=== PATIENT | male | born 1970 | race Caucasian/White ===

== ENCOUNTER 2021-01-29 11:12 | Emergency (ER) | payer OTHER ==
[2021-01-29 11:42] VITALS: BP 102/70; PULSE 84; TEMP 97.5; BMI 28.8
[2021-01-29] MEDS ORDERED: KETOROLAC TROMETHAMINE 30 MG/1 ML VIAL IM ONE (12:02)
[2021-01-29] MEDS ORDERED: KETOROLAC TROMETHAMINE 30 MG/1 ML VIAL ONE (12:17)
== END 2021-01-29 12:50 | disposition home or self-care (01) ==
LOC: JER 11:12
PROC: 3E0233Z Introduction of Anti-inflammatory into Muscle, Percutaneous Approach (ICD-10-PCS; principal; 2021-01-29)
DX: M54.5 Low back pain (principal)
CPT/HCPCS: 99284-25